=== PATIENT | female | born 1970 | race Caucasian/White ===

== ENCOUNTER 2023-09-11 15:51 | Emergency (ER) | payer MEDICAID, SELFPAY ==
--- NOTE | 2023-09-11 16:00 | ED.NURSE ---
Pt L hand soaking in hibiclens.
[2023-09-11 16:04] VITALS: BP 175/118; PULSE 57; RESP 16; TEMP 36.6; O2SAT 95; BMI 33.3
--- NOTE | 2023-09-11 17:37 | ED.WOUNDLAC ---
HPI - Wound/Laceration General Date Seen: 09/11/23 Chief Complaint: Laceration/Wound Stated Complaint: Laceration left hand Time Seen by Provider: 09/11/23 16:07 Source: patient Mode of arrival: ambulatory Limitations: no limitations History of Present Illness HPI narrative: Patient is a 53-year-old female with no pertinent medical issues presented emergency department for laceration to her left palm. Laceration is to the hypothenar eminence. She states she was cutting some vegetables when she cut her hand. No other concerns at this time. She states she came in because she saw small amount of fat protruding from the wound. Related Data Home Medications Medication Instructions Recorded Confirmed atenolol .ROUTE 09/11/23 clonazepam .ROUTE 09/11/23 furosemide .ROUTE 09/11/23 potassium chloride .ROUTE 09/11/23 Allergies Allergy/AdvReac Type Severity Reaction Status Date / Time codeine Allergy Unknown Verified 09/11/23 16:08 Penicillins Allergy Unknown Verified 09/11/23 16:08 Sulfa (Sulfonamide Allergy Unknown Verified 09/11/23 16:08 Antibiotics) Review of Systems Narrative: Negative unless stated in HPI PFSH PFSH Social History Smoking Status: Current every day smoker What tobacco products do you use: cigarettes Smoking packs per day: 0.25 Smoking cigarettes per day: 5.0 How often do you have a drink containing alcohol: monthly or less How often do you have six or more drinks on one occasion: Never AUDIT-C Alcohol total score: 1 Non-prescribed substance use: denies use Exam Narrative: Exam Narrative: Const: Well-nourished, Well-developed, in mild distress Eyes: PERRL, no conjunctival injection, and symmetrical lids HENT: Atraumatic external nose and ears. Moist mucous membranes. MSK:Extremities w/o deformity, Normal Active ROM Skin: Warm, Dry. 0.5 cm laceration lateral left hypothenar eminence Neuro: Normal Muscle tone, No focal neurological deficits. Psych: Awake, Alert, & Oriented x3. Appropriate mood and affect. Const: Vital Signs, click to edit/add: Vital Signs - 24 hr 09/11/23 16:04 Temperature 97.8 F Pulse Rate [Pulse Oximeter] 57 L Respiratory Rate 16 Blood Pressure [Ri ght Upper Arm] 175/118 H Pulse Oximetry 95 Oxygen Delivery Me thod Room Air Course Vital Signs Vital signs: Initial Vital Signs Temperature 97.8 F 09/11/23 16:04 Temperature Source Temporal Artery Scan 09/11/23 16:04 Pulse Rate 57 L 09/11/23 16:04 Respiratory Rate 16 09/11/23 16:04 Blood Pressure 175/118 H 09/11/23 16:04 Blood Pressure Mean 137 H 09/11/23 16:04 Blood Pressure Position Supine 09/11/23 16:04 Pulse Oximetry 95 09/11/23 16:04 Oxygen Delivery Method Room Air 09/11/23 16:04 Vital Signs Temperature 97.8 F 09/11/23 16:04 Pulse Rate 57 L 09/11/23 16:04 Respiratory Rate 16 09/11/23 16:04 Blood Pressure 175/118 H 09/11/23 16:04 Pulse Oximetry 95 09/11/23 16:04 Oxygen Delivery Method Room Air 09/11/23 16:04 Temperature 97.8 F 09/11/23 16:04 Pulse Rate 57 L 09/11/23 16:04 Respiratory Rate 16 09/11/23 16:04 Blood Pressure 175/118 H 09/11/23 16:04 Pulse Oximetry 95 09/11/23 16:04 Oxygen Delivery Method Room Air 09/11/23 16:04 MDM - Wound/Laceration MDM Narrative Medical decision making narrative: Patient is a 53 year female presenting from aspiration during left hypothenar eminence. This happened shortly prior to arrival to emergency department. There is some fat protruding. Everything appeared clean and she the wound was cleaned thoroughly. I did do ulnar nerve block with ultrasound guidance. See procedure note. I do not believe she is needing antibiotics at this time but did give her strict return precautions if she is concerned she is developing infection. She is doing well we discharged home. I do not believe imaging is necessary Discharge Plan Discharge Instructions: Laceration (ED) Additional Instructions: Follow-up with your primary care provider/urgent care/emergency department in the next 7 days to have the 2 sutures removed. For next 6 months, once sutures are removed, whenever you goes outside put a tab of sunscreen over the laceration site to improve scar appearance. Topical antibiotics are not necessary at this time. Patient can shower but do not submerge the laceration until sutures are removed. If you see signs concerning for infection please return to the emergency department immediately Prescriptions: No Action atenolol .ROUTE furosemide [Lasix] .ROUTE potassium chloride .ROUTE clonazepam .ROUTE Follow Up/Referrals: Provider,Not a Local [Primary Care Provider] - Stand Alone Forms: [facility] Info Instructions Procedures Laceration Hypothenar eminence: Name of person performing procedure: Bharat Street Site: hand (Hypothenar eminence) Side (If applicable): left Size (cm): 0.5 Description: linear and clean Depth: simple, single layer Local Anesthetic: lidocaine 1% (Ulnar nerve block) and with epi Amount of anesthesia used (mL): 5 Pre-repair: wound explored, irrigated extensively and deep structures intact Skin layer closed with: nylon Size (cm): 5-0 Number of sutures: 2 Technique: simple, interrupted
--- NOTE | 2023-09-11 17:45 | ED.NURSE ---
Pt lac on L hand bandaged with telfa and gauze roll.
== END 2023-09-11 17:58 | disposition home or self-care (01) ==
PROVIDERS: Emergency Provider Student in an Organized Health Care Education/Training Program
DX: S61.412A Laceration without foreign body of left hand, initial encounter (principal); W26.0XXA Contact with knife, initial encounter; Y92.010 Kitchen of single-family (private) house as the place of occurrence of the external cause
CPT/HCPCS: 12001; 99282; 99283